=== PATIENT | female | born 1955 | race Caucasian/White ===

== ENCOUNTER → 2021-08-08 13:58 | Outpatient (CLI) | payer MEDICARE, SELFPAY ==
--- NOTE | ~2021-08-08 | MR_ITS ---
EXAMINATION: MR knee RT wo con DATE: 08/08/2021 14:35 INDICATION: Chronic right knee pain TECHNIQUE: Magnetic resonance imaging (MRI) of the right knee was performed without intravenous contr ast. Sequences included coronal PD-weighted FSE, coronal PD-weighted FS FSE, sagittal T2-weighted FS E, sagittal PD-weighted FS FSE and axial PD weighted fat saturated FSE. COMPARISON: None. FINDINGS: Medial compartment: Complex tear of the body and posterior horn of the medial meniscus. This includes a small meniscal fl ap which extends cephalad from the anterior body with small region of loss of meniscal tissue at the midportion of the meniscal body. There is a longitudinal horizontal tear plane extending to the infer ior articular surface at the posterior body along with additional tearing along the inner third of th e posterior horn. Deep chondral ulceration with minimal underlying cortical irregularity and prominen t subarticular edema-like signal changes at the central weightbearing medial femoral condyle. Additio nal partial thickness cartilage loss with mild subarticular edema-like signal change along the anteri or and medial margins of the medial tibial plateau. Lateral compartment: Lateral meniscus is normal. Subtle signal heterogeneity at the anterior weightbearing lateral femoral condyle and juxtaposed central aspect of the lateral tibial plateau suggesting partial thickness cho ndral fissuring. Patellofemoral compartment: Deep chondral ulceration with underlying cortical irregularity and mild subarticular edema-like signa l change along much of the medial trochlea and inferior aspect of the trochlear groove. Deep chondral ulceration with mild underlying edema-like signal change at the lateral aspect of the lateral patell ar facet. Additional deep chondral fissuring without degenerative subchondral changes at the medial a spect of the medial patellar facet. Ligaments and tendons: Anterior and posterior cruciate ligaments are normal. The fibular collateral ligament complex is norm al. Mild thickening of the proximal medial collateral ligament without surrounding edema consistent w ith mild scarring related to chronic sprain. Mild patellar tendinopathy with small enthesophytes at t he patellar insertion. The quadriceps tendon is normal. The visualized medial and lateral hamstring t endons as well as the iliotibial band are normal. Fluid: Small to moderate-sized right knee joint effusion with mild synovitis at the suprapatellar pouch. No loose osteochondral bodies identified. Osseous/other: Bone alignment is normal. No fracture or pathologic marrow replacing process. IMPRESSION: 1. Complex medial meniscal tear. 2. Tricompartmental osteoarthritis, moderate severity with high-grade chondromalacia in the medial an d patellofemoral compartments and mild with likely additional moderate grade chondromalacia in the la teral compartment. 3. Small to moderate-sized likely reactive right knee joint effusion. 4. Mild patellar tendinopathy. Reviewed, dictated and finalized at location A. IMPRESSION: 1. Complex medial meniscal tear. 2. Tricompartmental osteoarthritis, moderate severity with high-grade chondroma lacia in the medial and patellofemoral compartments and mild with likely additi onal moderate grade chondromalacia in the lateral compartment. 3. Small to moderate-sized likely reactive right knee joint effusion. 4. Mild patellar tendinopathy.
== END ==
PROVIDERS: PCP Family Medicine
DX: M25.461 Effusion, right knee (principal); S83.231A Complex tear of medial meniscus, current injury, right knee, initial encounter; X58.XXXA Exposure to other specified factors, initial encounter; M17.11 Unilateral primary osteoarthritis, right knee
CPT/HCPCS: 73721